=== PATIENT | female | born 1995 | race African-American/Black ===

== ENCOUNTER → 2016-11-02 20:58 | Emergency (ER) | payer SELFPAY ==
[~2016-11-02 20:58] MED LIST: PPD test dose* 5 TU/0.1 ML TEST (*USE PPD ORDER SET*) ONE
== END | disposition home or self-care (01) ==
LOC: OHCORT 20:58
DX: Z02.1 Encounter for pre-employment examination (principal); Z11.1 Encounter for screening for respiratory tuberculosis